=== PATIENT | female | born 1945 | race Caucasian/White ===

== ENCOUNTER → 2020-11-25 | Outpatient (CLI) | payer MEDICARE, OTHER ==
[~2020-11-25] MED LIST: ASPI81TA45 PO; CALC1CAP8 PO; CRANBERRY EXTRACT PO; HYDR25TA6 PO; L.AC1CAP6 PO; LEVO50TA PO; LISI5TAB7 PO; METH1TAB21 PO; METO-95 PO; MULT-449 PO; OMEG1CAP6 PO; SIMV20TA PO
== END | disposition home or self-care (01) ==
LOC: STAR 13:02
PROVIDERS: ATTEND Urology
DX: Z01.812 Encounter for preprocedural laboratory examination (principal); Z20.822 Contact with and (suspected) exposure to COVID-19; N20.0 Calculus of kidney; R94.31 Abnormal electrocardiogram [ECG] [EKG]
CPT/HCPCS: 93005; U0003

== ENCOUNTER 2020-11-30 09:30 | Day surgery (SDC) | payer MEDICARE, OTHER ==
[~2020-11-30] VITALS: Ht 160 cm; Wt 106.2 kg
[2020-11-30] MEDS ORDERED: LACTATED RINGERS 1,000 ML IV SCH (10:00)
[2020-11-30] MEDS ORDERED: CHLORHEXIDINE 15 ML UDC PO ONE (10:00)
[2020-11-30 10:05] VITALS: BP 183/99
[2020-11-30] MEDS ORDERED: CHLORHEXIDINE 15 ML UDC ONE (10:10)
[2020-11-30] MEDS ORDERED: MIDAZOLAM 1 MG/ML, 2ML ONE (12:06)
[2020-11-30] MEDS ORDERED: KETOROLAC 30 MG/1 ML IV PRN (12:30)
[2020-11-30] MEDS ORDERED: PROMETHAZINE 25 MG/ML, 1ML IV PRN (12:30)
[2020-11-30] MEDS ORDERED: ACETAMINOPHEN 325 MG TABLET PO PRN (12:30)
[2020-11-30] MEDS ORDERED: LABETALOL 5MG/ML, 20ML IV PRN (12:30)
[2020-11-30] MEDS ORDERED: MEPERIDINE/PF 25MG/0.5ML IVPush PRN (12:30)
[2020-11-30] MEDS ORDERED: DIAZEPAM 5 MG/ML, 2ML IVPush PRN (12:30)
[2020-11-30] MEDS ORDERED: FENTANYL PF 100 MCG/2ML IV PRN (12:30)
[2020-11-30] MEDS ORDERED: OXYcodone 5 MG/5 ML ORAL.SOL UDC PO PRN (12:30)
[2020-11-30] MEDS ORDERED: hydrALAzine 20 MG/ML, 1ML IV PRN (12:30)
[2020-11-30] MEDS ORDERED: ALBUTEROL SULFATE 2.5 MG/3 ML NPPB PRN (12:30)
[2020-11-30] MEDS ORDERED: HYDROmorphone 2 MG/ML, 1ML IVPush PRN (12:30)
[2020-11-30] MEDS ORDERED: ROCURONIUM 10MG/ML,5ML ONE (13:20)
[2020-11-30] MEDS ORDERED: GLYCOPYRROLATE 0.2MG/1ML, 5ML ONE (13:20)
[2020-11-30] MEDS ORDERED: DEXAMETHASONE 4 MG/ML, 1ML ONE (13:20)
[2020-11-30] MEDS ORDERED: NEOSTIGMINE 1 MG/ML, 10ML ONE (13:20)
[2020-11-30] MEDS ORDERED: SUCCINYLCHOLINE 20 MG/ML, 10ML ONE (13:20)
[2020-11-30] MEDS ORDERED: PROPOFOL 10 MG/ML, 20ML ONE (13:20)
[2020-11-30] MEDS ORDERED: CEFAZOLIN 1,000 MG ONE (13:20)
[2020-11-30] MEDS ORDERED: ONDANSETRON 2MG/ML, 2ML ONE ×2 (13:20→14:10)
[2020-11-30] MEDS ORDERED: FENTANYL PF 250 MCG/5ML ONE (13:20)
[2020-11-30] MEDS ORDERED: FENTANYL PF 100 MCG/2ML ONE (13:36)
[2020-11-30] MEDS ORDERED: ONDANSETRON 2MG/ML, 2ML IVPush PRN (14:30)
== END 2020-11-30 16:05 | disposition home or self-care (01) ==
LOC: OUT 09:30
PROVIDERS: ATTEND Urology
DX: N20.0 Calculus of kidney (principal); I10 Essential (primary) hypertension; E78.5 Hyperlipidemia, unspecified; E03.9 Hypothyroidism, unspecified; E66.9 Obesity, unspecified; Z79.82 Long term (current) use of aspirin; Z79.890 Hormone replacement therapy; Z79.899 Other long term (current) drug therapy; Z88.2 Allergy status to sulfonamides; Z88.8 Allergy status to other drugs, medicaments and biological substances; Z82.3 Family history of stroke; Z80.52 Family history of malignant neoplasm of bladder
CPT/HCPCS: 52356; 74018; 82360; 88300; C1758; C1769; C2617; J0330; J0690; J1100; J1885; J2250; J2405; J2704; J3010; J7120; 76000; J2710